=== PATIENT | male | born 2000 | race Caucasian/White ===

== ENCOUNTER 2019-08-20 15:22 | Emergency (ER) | payer MEDICAID, OTHER ==
[2019-08-20 15:29] VITALS: RESP 18; TEMP 98.4
[2019-08-20] MEDS ORDERED: SODIUM CHLORIDE 0.9% 1,000 ML IV STA (15:45)
--- NOTE | 2019-08-20 15:51 | ED ---
General Adult HPI - General Chief complaint: Arrhythmia/Palpitations Stated complaint: Palpitations Time Seen by Provider: 08/20/19 15:32 Source: patient, family, RN notes reviewed Mode of arrival: ambulatory Limitations: no limitations - History of Present Illness Initial comments: Patient is a pleasant 19-year-old male presenting to the emergency Department with complains of palpitations. Symptoms have been intermittent throughout the day. Heart rate at home has been as high as 180. Heart rate usually increases with exertion or standing up. Patient did get cold and sweaty earlier. No chest pain or dyspnea. Patient does have history of SVT previously and has had ablation done at age 5 and age 10. Patient currently symptom-free. - Related Data Previous Rx's Medication Instructions Recorded Verapamil HCl [Verapamil ER] 120 mg PO DAILY #30 tablet.er 08/20/19 Allergies Allergy/AdvReac Type Severity Reaction Status Date / Time No Known Allergies Allergy Verified 08/20/19 17:08 Review of Systems ROS Statement: Those systems with pertinent positive or pertinent negative responses have been documented in the HPI. ROS Other: All systems not noted in ROS Statement are negative. Constitutional: Denies: fever Eyes: Denies: eye pain ENT: Denies: ear pain Respiratory: Denies: cough, dyspnea Cardiovascular: Reports: palpitations. Denies: chest pain Endocrine: Denies: fatigue Gastrointestinal: Denies: abdominal pain Genitourinary: Denies: dysuria Musculoskeletal: Denies: back pain Skin: Denies: rash Neurological: Denies: weakness Past Medical History Additional Past Medical History / Comment(s): PSVT History of Any Multi-Drug Resistant Organisms: None Reported Past Surgical History: Heart Catheterization Additional Past Surgical History / Comment(s): HEART ABLATION Past Psychological History: No Psychological Hx Reported Smoking Status: Never smoker Past Alcohol Use History: Occasional Past Drug Use History: None Reported General Exam Limitations: no limitations General appearance: alert, in no apparent distress Head exam: Present: normocephalic Eye exam: Present: normal appearance Respiratory exam: Present: normal lung sounds bilaterally. Absent: chest wall tenderness Cardiovascular Exam: Present: tachycardia Expanded Peripheral pulses: 2+: Radial (R), Radial (L) GI/Abdominal exam: Present: soft. Absent: tenderness Extremities exam: Present: normal inspection. Absent: pedal edema, calf tenderness Neurological exam: Present: alert Psychiatric exam: Present: normal affect, normal mood Skin exam: Present: normal color Course Vital Signs 08/20/19 08/20/19 08/20/19 15:26 15:37 15:40 Temperature 98.4 F Pulse Rate 129 H 112 H 129 H Respiratory 18 17 18 Rate Blood Pressure 129/69 168/65 O2 Sat by Pulse 99 98 100 Oximetry 08/20/19 08/20/19 08/20/19 16:00 16:20 16:40 Temperature Pulse Rate 106 H 123 H 96 Respiratory 17 17 17 Rate Blood Pressure 125/68 136/88 134/82 O2 Sat by Pulse Oximetry 08/20/19 17:00 Temperature Pulse Rate 96 Respiratory 18 Rate Blood Pressure 117/79 O2 Sat by Pulse Oximetry - Reevaluation(s) Reevaluation #1: 08/20/19 16:35 EKG #2 shows atrial flutter at 99. QRS 116. QT 316. QTC 405. Normal axis.rsr V1 and V2. Early repolarization. EKG Findings - EKG Comments: EKG Findings:: EKG shows narrow complex tachycardia with a rate of 111. VA 140. QRS 114. QT 3 or 4. QTC 413. Normal axis. rsr V1 and V2. Nonspecific ST-T. Additional P waves without QRS complexes raise suspicion for underlying atrial flutter Medical Decision Making - Medical Decision Making Patient reevaluated and remained symptom-free. Case was discussed in detail with Dr. Mcguire who did review EKGs. He thinks rhythm is likely more related to atrial tachycardia. He recommends discharge of patient and starting verapamil 120 daily. Patient and family updated and comfortable with discharge. Heart rate has been fluctuating between 100-120. - Lab Data Result diagrams: 08/20/19 15:50 08/20/19 15:50 Lab Results 08/20/19 08/20/19 08/20/19 Range/Units 15:50 15:50 15:50 WBC 8.4 (3.8-10.6) k/uL RBC 5.53 (4.30-5.90) m/uL Hgb 17.0 (13.0-17.5) gm/dL Hct 51.1 (39.0-53.0) % MCV 92.5 (80.0-100.0) fL MCH 30.8 (25.0-35.0) pg MCHC 33.3 (31.0-37.0) g/dL RDW 12.5 (11.5-15.5) % Plt Count 217 (150-450) k/uL Neutrophils % 69 % Lymphocytes % 21 % Monocytes % 6 % Eosinophils % 2 % Basophils % 1 % Neutrophils # 5.8 (1.3-7.7) k/uL Lymphocytes # 1.8 (1.0-4.8) k/uL Monocytes # 0.5 (0-1.0) k/uL Eosinophils # 0.1 (0-0.7) k/uL Basophils # 0.0 (0-0.2) k/uL PT 10.5 (9.0-12.0) sec INR 1.0 (<1.2) APTT 25.4 (22.0-30.0) sec Sodium 140 (137-145) mmol/L Potassium 4.5 (3.5-5.1) mmol/L Chloride 105 (98-107) mmol/L Carbon Dioxide 27 (22-30) mmol/L Anion Gap 8 mmol/L BUN 19 (9-20) mg/dL Creatinine 1.19 (0.66-1.25) mg/dL Est GFR (CKD-EPI)AfAm >90 (>60 ml/min/1.73 sqM) Est GFR (CKD-EPI)NonAf 87 (>60 ml/min/1.73 sqM) Glucose 92 (74-99) mg/dL Calcium 10.0 (8.4-10.2) mg/dL Magnesium 2.1 (1.6-2.3) mg/dL Total Bilirubin 0.4 (0.2-1.3) mg/dL AST 28 (17-59) U/L ALT 23 (4-49) U/L Alkaline Phosphatase 74 (38-126) U/L Troponin I (0.000-0.034) ng/mL Total Protein 7.3 (6.3-8.2) g/dL Albumin 4.6 (3.5-5.0) g/dL TSH 1.150 (0.465-4.680) mIU/L Free T4 0.89 (0.78-2.19) ng/dL Free T3 pg/mL 4.4 (2.8-5.3) pg/ml 08/20/19 Range/Units 15:50 WBC (3.8-10.6) k/uL RBC (4.30-5.90) m/uL Hgb (13.0-17.5) gm/dL Hct (39.0-53.0) % MCV (80.0-100.0) fL MCH (25.0-35.0) pg MCHC (31.0-37.0) g/dL RDW (11.5-15.5) % Plt Count (150-450) k/uL Neutrophils % % Lymphocytes % % Monocytes % % Eosinophils % % Basophils % % Neutrophils # (1.3-7.7) k/uL Lymphocytes # (1.0-4.8) k/uL Monocytes # (0-1.0) k/uL Eosinophils # (0-0.7) k/uL Basophils # (0-0.2) k/uL PT (9.0-12.0) sec INR (<1.2) APTT (22.0-30.0) sec Sodium (137-145) mmol/L Potassium (3.5-5.1) mmol/L Chloride (98-107) mmol/L Carbon Dioxide (22-30) mmol/L Anion Gap mmol/L BUN (9-20) mg/dL Creatinine (0.66-1.25) mg/dL Est GFR (CKD-EPI)AfAm (>60 ml/min/1.73 sqM) Est GFR (CKD-EPI)NonAf (>60 ml/min/1.73 sqM) Glucose (74-99) mg/dL Calcium (8.4-10.2) mg/dL Magnesium (1.6-2.3) mg/dL Total Bilirubin (0.2-1.3) mg/dL AST (17-59) U/L ALT (4-49) U/L Alkaline Phosphatase (38-126) U/L Troponin I 0.020 (0.000-0.034) ng/mL Total Protein (6.3-8.2) g/dL Albumin (3.5-5.0) g/dL TSH (0.465-4.680) mIU/L Free T4 (0.78-2.19) ng/dL Free T3 pg/mL (2.8-5.3) pg/ml - Radiology Data Radiology results: image reviewed (Chest x-ray shows no acute process) Disposition Clinical Impression: Atrial tachycardia Disposition: HOME SELF-CARE Condition: Stable Instructions (If sedation given, give patient instructions): Atrial Tachycardia (ED) Additional Instructions: Please call Dr. Valle office tomorrow to set up appointment for this week. Return for increased heart rate, sweating or passing out, chest pain or shortness of breath, worsening symptoms or other concerns. Please check heart rate frequently, multiple times per day. Prescription sent to [facility] Prescriptions: Verapamil HCl [Verapamil ER] 120 mg PO DAILY #30 tablet.er Is patient prescribed a controlled substance at d/c from ED?: No Referrals: Bijan Salazar DO [Primary Care Provider] - 1-2 days James Valle MD [STAFF PHYSICIAN] - 1-2 days Time of Disposition: 17:22
[2019-08-20 16:00] LABS: Basophils % (A) 1 %; Eosinophils # (A) 0.1 k/uL (0-0.7); Eosinophils % (A) 2 %; HCT 51.1 % (39.0-53.0); Lymphocytes # (A) 1.8 k/uL (1.0-4.8); Lymphocytes % (A) 21 %; MCH 30.8 pg (25.0-35.0); MCHC 33.3 g/dL (31.0-37.0); MCV 92.5 fL (80.0-100.0); Mean Platelet Volume 8.3; Monocytes # (A) 0.5 k/uL (0-1.0); Monocytes % (A) 6 %; Neutrophils # (A) 5.8 k/uL (1.3-7.7); Neutrophils % (A) 69 %; Platelet Count 217 k/uL (150-450); RBC 5.53 m/uL (4.30-5.90); RDW 12.5 % (11.5-15.5); WBC 8.4 k/uL (3.8-10.6)
[2019-08-20 16:10] LABS: ALT 23 U/L (4-49); AST 28 U/L (17-59); African American GFR (CKD) >90 (>60 ml/min/1.73 sqM); Albumin 4.6 g/dL (3.5-5.0); Alkaline Phosphatase 74 U/L (38-126); Anion Gap 8 mmol/L; Blood Urea Nitrogen 19 mg/dL (9-20); Carbon Dioxide 27 mmol/L (22-30); Chloride 105 mmol/L (98-107); Glucose 92 mg/dL (74-99); Magnesium 2.1 mg/dL (1.6-2.3); Non-African American GFR(CKD) 87 (>60 ml/min/1.73 sqM); Potassium 4.5 mmol/L (3.5-5.1); Sodium 140 mmol/L (137-145); Total Bilirubin 0.4 mg/dL (0.2-1.3); Total Protein 7.3 g/dL (6.3-8.2)
[2019-08-20 16:12] LABS: Partial Thromboplastin Time 25.4 sec (22.0-30.0); Prothrombin Time 10.5 sec (9.0-12.0)
[2019-08-20 16:27] LABS: T4, Free (Free Thyroxine) 0.89 ng/dL (0.78-2.19)
--- NOTE | 2019-08-20 16:46 | XR ---
EXAMINATION TYPE: XR chest 1V portable DATE OF EXAM: 08/20/2019 COMPARISON: 02/28/2007 INDICATION: Dysrhythmia increased heart rate dizziness, history of cardiac ablations TECHNIQUE: Single frontal view of the chest is obtained. FINDINGS: The heart size is normal. The pulmonary vasculature is normal. The lungs are clear. IMPRESSION: 1. No acute pulmonary process.
[2019-08-20] MEDS ORDERED: VERAPAMIL 40 MG TAB PO STA (16:59)
[2019-08-20 17:19] VITALS: BP 117/79; PULSE 96
== END 2019-08-20 17:43 | disposition home or self-care (01) ==
LOC: EC 15:22
DX: I47.1 Supraventricular tachycardia (principal)
CPT/HCPCS: 36415; 71045; 80053; 83735; 84439; 84443; 84481; 84484; 85025; 85610; 85730; 96360; 99285